=== PATIENT | male | born 1955 | race African-American/Black ===

== ENCOUNTER 2023-12-17 08:03 | Outpatient (CLI) | payer OTHER | END 2023-12-17 08:04 | disposition home or self-care (01) | LOC: CSHRAD 08:03 | PROVIDERS: ATTEND Internal Medicine | DX: Z13.6 Encounter for screening for cardiovascular disorders (principal) | CPT/HCPCS: 76706 ==

== ENCOUNTER 2024-03-10 09:09 | Outpatient (CLI) | payer OTHER | END 2024-03-10 09:10 | disposition home or self-care (01) | LOC: CSHULT 09:09 | PROVIDERS: ATTEND Internal Medicine | DX: Z13.6 Encounter for screening for cardiovascular disorders (principal) | CPT/HCPCS: 76706 ==